=== PATIENT | male | born 2005 | race Caucasian/White ===

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

== ENCOUNTER 2023-06-28 19:39 | Emergency (ER) | payer MEDICAID ==
[2023-06-28] MEDS ORDERED: Naloxone 2 MG/2 ML Syringe IVPUSH PRN (20:25)
[2023-06-28] MEDS ORDERED: HYDROmorphone 2 MG/ML Syringe IVPUSH ONE (20:25)
[2023-06-28] MEDS ORDERED: Sodium Chloride 0.9% 1,000 ML IV ONE (20:26)
[2023-06-28] MEDS ORDERED: Ondansetron 4 MG/2 ML SDV IVPUSH ONE (20:26)
[2023-06-28] MEDS ORDERED: HYDROmorphone 2 MG/ML Syringe ONE (20:32)
[2023-06-28] MEDS ORDERED: Ondansetron 4 MG/2 ML SDV ONE (20:32)
[2023-06-28 20:44] LABS: APPEARANCE,URINE CLEAR (CLEAR); BILIRUBIN,URINE SMALL (NEGATIVE); COLOR,URINE YELLOW; GLUCOSE,URINE NEGATIVE (NEGATIVE); KETONES,URINE TRACE mg/dL (NEGATIVE); LEUKOCYTE ESTERASE,URINE NEGATIVE (NEGATIVE); NITRITE,URINE NEGATIVE (NEGATIVE); OCCULT BLOOD,URINE MODERATE (NEGATIVE); PH,URINE 5.5 (5.0-8.0); PROTEIN,URINE 100 mg/dL (NEGATIVE); UROBILINOGEN,URINE 0.2 E.U./dL (0.2-1.0)
[2023-06-28 20:48] LABS: BASOPHILS ABSOLUTE AUTO 0.03 K/uL (0.02-0.10); BASOPHILS PERCENT AUTO 0.3 % (0.0-0.5); EOSINOPHILS ABSOLUTE AUTO 0.34 K/uL (0.04-0.40); HEMATOCRIT 44.4 % (40.0-54.0); HEMOGLOBIN 15.3 g/dL (13.0-18.0); LYMPHOCYTES ABSOLUTE AUTO 2.61 K/uL (1.50-4.00); LYMPHOCYTES PERCENT AUTO 23.2 % (20.0-40.0); MEAN CORPUSCULAR HEMOGLOBIN 28.6 pg (27.0-32.0); MEAN CORPUSCULAR HGB CONC 34.5 g/dL (31.0-35.0); MEAN CORPUSCULAR VOLUME 83 fL (76-96); MEAN PLATELET VOLUME 9.7 fL (6.0-10.0); MONOCYTES ABSOLUTE AUTO 1.05 K/uL (0.20-0.80); MONOCYTES PERCENT AUTO 9.3 % (3.0-10.0); NEUTROPHILS ABSOLUTE AUTO 7.22 K/uL (2.00-7.50); NEUTROPHILS PERCENT AUTO 64.2 % (45.0-70.0); PLATELET COUNT,PLT 379 K/uL (150-400); RED BLOOD CELL COUNT 5.35 M/uL (4.50-6.50); RED CELL DISTRIBUTION WIDTH 13.2 % (11.0-16.0); WHITE BLOOD CELL COUNT,WBC 11.3 K/uL (4.0-11.0)
[2023-06-28 20:50] LABS: EPITHELIAL CELLS,URINE RARE /HPF; RBC,URINE 0-5 /HPF; WBC,URINE NOT SEEN /HPF
[2023-06-28 21:03] LABS: ALBUMIN 3.9 g/dL (3.4-5.0); ANION GAP 15.2 mmol/L (5.0-15.0); BILIRUBIN TOTAL 0.5 mg/dL (0.0-1.0); BUN/CREATININE RATIO 10.8 (6-25); CALCIUM 9.3 mg/dL (8.5-10.1); CARBON DIOXIDE,CO2 25.1 mmol/L (21.0-32.0); CREATININE 1.02 mg/dL (0.70-1.30); EST CRCL DRUG DOSING (CG) 131.64 mL/min; POTASSIUM,K 4.3 mmol/L (3.5-5.1)
[2023-06-28] MEDS ORDERED: Acetaminophen/HYDROcodone 325-5 MG Tab ONE (21:45)
[2023-06-28] MEDS ORDERED: Tamsulosin 0.4 MG Cap.ER ONE (21:45)
== END 2023-06-28 22:00 | disposition home or self-care (01) ==
LOC: LB.ED 19:39
DX: N13.2 Hydronephrosis with renal and ureteral calculous obstruction (principal); I10 Essential (primary) hypertension; Z79.899 Other long term (current) drug therapy
CPT/HCPCS: 36415; 74176; 80053; 81001; 83690; 85025; 96361; 96374; 96375; 99284-25; A9270-GY; J1170; J2405; J7030